=== PATIENT | male | born 1975 | race Caucasian/White ===

== ENCOUNTER → 2016-06-29 | Outpatient (REF) | payer MEDICARE ==
[2016-06-29 18:11] LABS: ALBUMIN 4.8 GM/DL (3.2-5.2); ALBUMIN/GLOBULIN RATIO 1.71 (1.00-1.93); ALKALINE PHOSPHATASE 80 U/L (45-117); ALT/SGPT 54 U/L (12-78); ANION GAP 9 MEQ/L (8-16); AST/SGOT 18 U/L (15-37); BILIRUBIN,TOTAL 0.6 MG/DL (0.2-1.0); BLOOD UREA NITROGEN 9 MG/DL (7-18); CALCIUM LEVEL 9.5 MG/DL (8.5-10.1); CARBON DIOXIDE LEVEL 26 MEQ/L (21-32); CHLORIDE LEVEL 109 MEQ/L (98-107); CHOLESTEROL LEVEL 141 MG/DL (<200); CREATININE FOR GFR 1.06 MG/DL (0.70-1.30); GLOMERULAR FILTRATION RATE > 60.0 (>60); GLUCOSE, FASTING 88 MG/DL (70-105); POTASSIUM SERUM 4.2 MEQ/L (3.5-5.1); SODIUM LEVEL 144 MEQ/L (136-145); TOTAL PROTEIN 7.6 GM/DL (6.4-8.2); TRIGLYCERIDES LEVEL 106 MG/DL (<150)
== END ==
LOC: M SFHCPLAZ 15:51
PROVIDERS: ATTEND Nurse Practitioner Adult Health
DX: I10 Essential (primary) hypertension (principal); E78.00 Pure hypercholesterolemia, unspecified; E03.9 Hypothyroidism, unspecified
CPT/HCPCS: 36415; 80053; 80061; 84443; G0463

== ENCOUNTER → 2017-01-04 | Outpatient (REF) | payer MEDICARE ==
[2017-01-04 18:48] LABS: MEAN CORPUSCULAR HEMOGLOBIN 30.2 pg (27.0-33.0); MEAN CORPUSCULAR VOLUME 86.1 fl (80.0-96.0); RED CELL DISTRIBUTION WIDTH 12.8 % (11.5-14.5); WHITE BLOOD COUNT 7.1 10^3/uL (4.0-10.0)
[2017-01-04 19:02] LABS: ALBUMIN 4.5 GM/DL (3.2-5.2); ALKALINE PHOSPHATASE 81 U/L (45-117); ALT/SGPT 61 U/L (12-78); ANION GAP 11 MEQ/L (8-16); AST/SGOT 20 U/L (15-37); BILIRUBIN,TOTAL 0.7 MG/DL (0.2-1.0); BLOOD UREA NITROGEN 15 MG/DL (7-18); CALCIUM LEVEL 9.3 MG/DL (8.5-10.1); CARBON DIOXIDE LEVEL 23 MEQ/L (21-32); CHLORIDE LEVEL 106 MEQ/L (98-107); CHOLESTEROL LEVEL 159 MG/DL (<200); CREATININE FOR GFR 0.92 MG/DL (0.70-1.30); GLOMERULAR FILTRATION RATE > 60.0 (>60); GLUCOSE, FASTING 74 MG/DL (70-105); POTASSIUM SERUM 3.6 MEQ/L (3.5-5.1); SODIUM LEVEL 140 MEQ/L (136-145); TOTAL PROTEIN 7.5 GM/DL (6.4-8.2); TRIGLYCERIDES LEVEL 114 MG/DL (<150)
== END ==
LOC: M SFHCPLAZ 15:51
PROVIDERS: ATTEND Nurse Practitioner Adult Health
DX: Z00.00 Encounter for general adult medical examination without abnormal findings (principal); E78.2 Mixed hyperlipidemia; E03.9 Hypothyroidism, unspecified; Z79.899 Other long term (current) drug therapy
CPT/HCPCS: 36415; 80053; 80061; 83036; 84443; 85027; G0463

== ENCOUNTER → 2017-01-04 | Outpatient (REF) | payer MEDICARE | LOC: M LAB REF 17:49 | PROVIDERS: ATTEND Psychiatry & Neurology Psychiatry | DX: Z51.81 Encounter for therapeutic drug level monitoring (principal); Z79.899 Other long term (current) drug therapy ==

== ENCOUNTER → 2018-01-09 | Outpatient (REF) | payer MEDICARE | LOC: M SFHCPLAZ 11:23 | DX: Z00.00 Encounter for general adult medical examination without abnormal findings (principal); E03.9 Hypothyroidism, unspecified; E78.2 Mixed hyperlipidemia ==

== ENCOUNTER → 2018-01-09 | Outpatient (CLI) | payer MEDICARE ==
[2018-01-09 14:00] LABS: ALBUMIN 4.8 GM/DL (3.2-5.2); ALBUMIN/GLOBULIN RATIO 1.66 (1.00-1.93); ALKALINE PHOSPHATASE 80 U/L (45-117); ALT/SGPT 61 U/L (12-78); ANION GAP 8 MEQ/L (8-16); AST/SGOT 27 U/L (7-37); BILIRUBIN,TOTAL 0.6 MG/DL (0.2-1.0); BLOOD UREA NITROGEN 20 MG/DL (7-18); CALCIUM LEVEL 9.3 MG/DL (8.5-10.1); CARBON DIOXIDE LEVEL 26 MEQ/L (21-32); CHLORIDE LEVEL 108 MEQ/L (98-107); CHOLESTEROL LEVEL 167 MG/DL (<200); CHOLESTEROL RISK RATIO 3.408 (<5); CREATININE FOR GFR 1.06 MG/DL (0.70-1.30); GLOMERULAR FILTRATION RATE > 60.0 (>60); GLUCOSE, FASTING 86 MG/DL (70-100); HDL CHOLESTEROL 49 MG/DL (>40); LDL CHOLESTEROL 107 MG/DL (<100); NON-HDL-C 118 MG/DL; POTASSIUM SERUM 4.4 MEQ/L (3.5-5.1); SODIUM LEVEL 142 MEQ/L (136-145); TOTAL PROTEIN 7.7 GM/DL (6.4-8.2); TRIGLYCERIDES LEVEL 56 MG/DL (<150)
== END ==
LOC: M ADAMS 08:00
DX: E78.2 Mixed hyperlipidemia (principal); E03.9 Hypothyroidism, unspecified
CPT/HCPCS: 84443

== ENCOUNTER → 2018-02-21 | Outpatient (REF) | payer MEDICARE ==
[2018-02-22 14:52] LABS: CREATININE FOR GFR 1.13 MG/DL (0.70-1.30); GLOMERULAR FILTRATION RATE > 60.0 (>60)
[2018-02-22 14:52] LABS: BLOOD UREA NITROGEN 13 MG/DL (7-18)
== END ==
LOC: M LABDRWAD 14:40
DX: M85.831 Other specified disorders of bone density and structure, right forearm (principal)
CPT/HCPCS: 82565

== ENCOUNTER → 2018-04-10 | Outpatient (REF) | payer MEDICARE ==
[2018-04-10 20:07] LABS: BLOOD UREA NITROGEN 13 MG/DL (7-18); GLOMERULAR FILTRATION RATE > 60.0 (>60)
== END ==
LOC: M LABDRWAD 19:25
PROVIDERS: ATTEND Physician Assistant Surgical
DX: Z01.812 Encounter for preprocedural laboratory examination (principal)

== ENCOUNTER → 2018-06-25 | Outpatient (CLI) | payer MEDICARE ==
--- NOTE | 2018-06-26 01:05 | ECGEPIP ---
Stationary ECG Study [facility] Test Date: 2018-06-25 Pat Name: FAWN BUITRAGO Department: Room: - Gender: M [employer]: [employer] : 1975 Requested By: LUCY Paredes Order Number: [id number] Reading MD: Hima Venegas Measurements Intervals [place] Rate: 76 P: 37 IL: 153 QRS: -1 QRSD: 95 T: 39 QT: 372 QTc: 419 Interpretive Statements SINUS RHYTHM INFERIOR MYOCARDIAL INFARCTION, PROBABLY OLD WITH POSTERIOR EXTENSION NO PRIOR TRACING IN THE SYSTEM Electronically Signed On 06-26-2018 1:04:53 EDT by Hima Venegas
== END ==
LOC: M EKG 14:16
PROVIDERS: ATTEND Orthopaedic Surgery
DX: Z01.810 Encounter for preprocedural cardiovascular examination (principal); S46.211D Strain of muscle, fascia and tendon of other parts of biceps, right arm, subsequent encounter

== ENCOUNTER → 2018-07-10 | Outpatient (REF) | payer MEDICARE ==
[2018-07-10 15:44] LABS: ALBUMIN 4.9 GM/DL (3.2-5.2); ALT/SGPT 49 U/L (12-78); BILIRUBIN,TOTAL 0.5 MG/DL (0.2-1.0); BLOOD UREA NITROGEN 13 MG/DL (7-18); CALCIUM LEVEL 9.6 MG/DL (8.5-10.1); CARBON DIOXIDE LEVEL 31 MEQ/L (21-32); CHLORIDE LEVEL 106 MEQ/L (98-107); CREATININE FOR GFR 1.09 MG/DL (0.70-1.30); GLOMERULAR FILTRATION RATE > 60.0 (>60); GLUCOSE, FASTING 86 MG/DL (70-100); MAGNESIUM LEVEL 2.4 MG/DL (1.8-2.4); POTASSIUM SERUM 4.2 MEQ/L (3.5-5.1); SODIUM LEVEL 142 MEQ/L (136-145); TOTAL PROTEIN 8.2 GM/DL (6.4-8.2)
[2018-07-10 15:50] LABS: HEMATOCRIT 46.6 % (42.0-52.0); HEMOGLOBIN 15.8 g/dl (13.5-17.5); MEAN CORPUSCULAR HEMOGLOBIN 29.9 pg (27.0-33.0); MEAN CORPUSCULAR HGB CONC 33.9 g/dl (32.0-36.5); MEAN CORPUSCULAR VOLUME 88.3 fl (80.0-96.0); PLATELET COUNT, AUTOMATED 307 10^3/uL (150-450); RED BLOOD COUNT 5.28 10^6/uL (4.30-6.10); WHITE BLOOD COUNT 6.7 10^3/uL (4.0-10.0)
== END ==
LOC: M SFHCPLAZ 13:54
PROVIDERS: ATTEND Internal Medicine
DX: Z01.818 Encounter for other preprocedural examination (principal); S46.211D Strain of muscle, fascia and tendon of other parts of biceps, right arm, subsequent encounter; I10 Essential (primary) hypertension; E03.9 Hypothyroidism, unspecified; K21.9 Gastro-esophageal reflux disease without esophagitis
CPT/HCPCS: 36415; 80053; 83735; 84443; 85027; G0463

== ENCOUNTER → 2020-02-05 | Outpatient (REF) | payer MEDICARE ==
[2020-02-05 17:26] LABS: HEMOGLOBIN A1c 5.2 %
[2020-02-05 17:34] LABS: ALT/SGPT 56 U/L (12-78); BILIRUBIN,TOTAL 0.5 MG/DL (0.2-1.0); BLOOD UREA NITROGEN 15 MG/DL (7-18); CALCIUM LEVEL 9.8 MG/DL (8.5-10.1); CARBON DIOXIDE LEVEL 29 MEQ/L (21-32); CHLORIDE LEVEL 108 MEQ/L (98-107); CHOLESTEROL LEVEL 179 MG/DL (<200); CHOLESTEROL RISK RATIO 3.977 (<5); CREATININE FOR GFR 1.21 MG/DL (0.70-1.30); GLOMERULAR FILTRATION RATE > 60.0 (>60); GLUCOSE, FASTING 87 MG/DL (70-100); HDL CHOLESTEROL 45 MG/DL (>40); LDL CHOLESTEROL 107 MG/DL (<100); NON-HDL-C 134 MG/DL; POTASSIUM SERUM 4.9 MEQ/L (3.5-5.1); SODIUM LEVEL 142 MEQ/L (136-145); TOTAL PROTEIN 8.2 GM/DL (6.4-8.2); TRIGLYCERIDES LEVEL 137 MG/DL (<150)
== END ==
LOC: M SFHCPLAZ 14:51
PROVIDERS: ATTEND Nurse Practitioner Adult Health
DX: Z01.818 Encounter for other preprocedural examination (principal); I10 Essential (primary) hypertension; E03.9 Hypothyroidism, unspecified; E78.2 Mixed hyperlipidemia; Z13.1 Encounter for screening for diabetes mellitus; Z79.899 Other long term (current) drug therapy; Z23 Encounter for immunization
CPT/HCPCS: 36415; 80053; 80061; 83036; 84443; 90682; G0008

== ENCOUNTER → 2020-08-10 | Outpatient (REF) | payer MEDICARE ==
[2020-08-10 18:56] LABS: ALBUMIN 4.8 GM/DL (3.2-5.2); ALT/SGPT 51 U/L (12-78); BILIRUBIN,TOTAL 0.5 MG/DL (0.2-1.0); BLOOD UREA NITROGEN 14 MG/DL (7-18); CALCIUM LEVEL 9.8 MG/DL (8.5-10.1); CARBON DIOXIDE LEVEL 28 MEQ/L (21-32); CHLORIDE LEVEL 108 MEQ/L (98-107); CHOLESTEROL LEVEL 191 MG/DL (<200); CHOLESTEROL RISK RATIO 3.897 (<5); CREATININE FOR GFR 1.04 MG/DL (0.70-1.30); GLOMERULAR FILTRATION RATE > 60.0 (>60); GLUCOSE, FASTING 79 MG/DL (70-100); HDL CHOLESTEROL 49 MG/DL (>40); LDL CHOLESTEROL 120 MG/DL (<100); NON-HDL-C 142 MG/DL; POTASSIUM SERUM 4.5 MEQ/L (3.5-5.1); SODIUM LEVEL 142 MEQ/L (136-145); TOTAL PROTEIN 7.7 GM/DL (6.4-8.2); TRIGLYCERIDES LEVEL 108 MG/DL (<150)
== END ==
LOC: M SFHCPLAZ 14:58
PROVIDERS: ATTEND Nurse Practitioner Adult Health
DX: Z01.818 Encounter for other preprocedural examination (principal); E03.9 Hypothyroidism, unspecified; I10 Essential (primary) hypertension; E78.2 Mixed hyperlipidemia
CPT/HCPCS: 36415; 80053; 80061; 84443; G0463

== ENCOUNTER 2020-09-25 11:12 | Day surgery (SDC) | payer MEDICARE ==
[~2020-09-25] VITALS: Ht 177.8 cm; Wt 112.0 kg
[2020-09-25] MEDS ORDERED: LEVO125T4 PO (11:32)
[2020-09-25] MEDS ORDERED: FLUO20CA22 PO (11:32)
[2020-09-25] MEDS ORDERED: SIMV20TA22 PO (11:32)
[2020-09-25] MEDS ORDERED: LISI10TA22 PO (11:32)
[2020-09-25] MEDS ORDERED: OLAN5TAB PO (11:32)
[2020-09-25 11:47] LABS: BASO # 0.1 10^3/uL (0.0-0.2); BASO % 0.4 % (0.0-1.0); EOS # 0.1 10^3/uL (0.0-0.5); HEMATOCRIT 44.1 % (42.0-52.0); LYMPH # 1.4 10^3/uL (1.5-5.0); LYMPH % 10.7 % (24.0-44.0); MEAN CORPUSCULAR HEMOGLOBIN 30.4 pg (27.0-33.0); MEAN CORPUSCULAR VOLUME 89.3 fl (80.0-96.0); MONO # 0.8 10^3/uL (0.0-0.8); NEUTROPHILS # 10.7 10^3/uL (1.5-8.5); NEUTROPHILS % 81.5 % (36.0-66.0); PLATELET COUNT, AUTOMATED 262 10^3/uL (150-450); RED BLOOD COUNT 4.94 10^6/uL (4.30-6.10); WHITE BLOOD COUNT 13.1 10^3/uL (4.0-10.0)
[2020-09-25] MEDS ORDERED: NS 1,000 ML IV ONE (12:10)
[2020-09-25] MEDS ORDERED: MORPHINE 4 MG/ML 1ML VIAL/SYRINGE (J2270) IV ONE (12:10)
[2020-09-25 12:11] LABS: ALBUMIN 4.3 GM/DL (3.2-5.2); BILIRUBIN,DIRECT 0.2 MG/DL (0.0-0.2); BILIRUBIN,TOTAL 0.6 MG/DL (0.2-1.0); TOTAL PROTEIN 7.5 GM/DL (6.4-8.2)
--- NOTE | 2020-09-25 13:11 | REP ---
INDICATION: ruq pain. FINDINGS: Multiple ultrasonographic images of the liver show diffuse increased echoes throughout the hepatic parenchyma without evidence of a mass or ductal dilatation. The common bile duct measures approximately 5 mm in its greatest transverse dimension. Multiple ultrasonographic images of the gallbladder show no focal or diffuse gallbladder wall thickening. There are no echogenic foci within the gallbladder lumen, which casts acoustic shadows. There is no pericholecystic edema. Images of the pancreatic region show no gross abnormality. The imaged portion of the right kidney is unremarkable. IMPRESSION: Fatty infiltration of the liver. Accredited by the [employer] in General Ultrasound. <Electronically signed by Shailesh Valero > 09/25/20 [id number]
[2020-09-25] MEDS ORDERED: ISOVUE-370 76% 100ML VIAL As Ordered ONE (13:51)
--- NOTE | 2020-09-25 14:13 | REP ---
INDICATION: right abd pain, r/o appy. COMPARISON: 10/27/2010 the only prior TECHNIQUE: Standard helical technique after the intravenous administration of 100 cc Isovue 370. FINDINGS: The lung bases are clear and unchanged. The liver, gallbladder, spleen, pancreas, adrenal glands, and kidneys are essentially unchanged. There are small bilateral renal cysts. The abdominal aorta and para-regions are within normal limits. There is no free fluid or free air. There is no mass or adenopathy. The appendix is abnormally dilatated and there is abnormal periappendiceal fatty infiltration with fatty infiltration of the mesoappendix. Bone window technique throughout the examination shows the osseous structures to be within normal limits. There is bilateral L5 spondylolysis with a grade 1/2 L5 upon S1 spondylolisthesis. IMPRESSION: 1. Acute appendicitis 2. Other findings as described above. <Electronically signed by Shailesh Valero > 09/25/20 [id number]
[2020-09-25] MEDS ORDERED: PIPERACILLIN/TAZOBACTAM SOD 3.375 GM in D5W MINI-BAG PLUS 50 ML IV ONE (14:20)
[2020-09-25] MEDS ORDERED: propofoL 200 MG/20 ML VIAL As Ordered ONE (16:21)
[2020-09-25] MEDS ORDERED: ONDANSETRON 4MG/2ML VIAL As Ordered ONE (16:21)
[2020-09-25] MEDS ORDERED: dexameTHASONE 4 MG/ML 1ML VIAL (J1100 PER 1MG) As Ordered ONE (16:21)
[2020-09-25] MEDS ORDERED: fentaNYL 250 MCG/5 ML INJECTION (J3010) As Ordered ONE (16:21)
[2020-09-25] MEDS ORDERED: LIDOCAINE 2% 100MG/5ML SDV (FOR ANES.) As Ordered ONE (16:21)
[2020-09-25] MEDS ORDERED: ROCURONIUM BROMIDE 50 MG/5 ML VIAL As Ordered ONE (16:21)
[2020-09-25] MEDS ORDERED: MIDAZOLAM INJ 2MG/2ML VIAL (J2250 PER 1MG) As Ordered ONE (16:21)
[2020-09-25 16:40] VITALS: BP 136/81
[2020-09-25] MEDS ORDERED: NS 1,000 ML IV SCH (16:45)
[2020-09-25] MEDS ORDERED: SUGAMMADEX SODIUM 500 MG/5 ML VIAL (BRIDION) As Ordered ONE (16:46)
[2020-09-25] MEDS ORDERED: BUPIVACAINE/EPIN 0.25% 30 ML VIAL As Ordered ONE (17:02)
[2020-09-25] MEDS ORDERED: ACETAMINOPHEN 1000MG 100ML IV BTL (OFIRMEV) (J0131 PER 10MG) As Ordered ONE (17:57)
[2020-09-25] MEDS ORDERED: IPRATROPIUM 0.5MG/ALBUTEROL 2.5MG INH SOL UD 3ML (DUONEB) NEB PRN (18:35)
[2020-09-25] MEDS ORDERED: MORPHINE 2 MG/ML 1ML VIAL (J2270) IV PRN ×2 (18:35)
[2020-09-25] MEDS ORDERED: NORCO, ANEXSIA 5/325MG TABLET (HYDROcodone/ACETAMINOPHEN) PO PRN ×2 (18:35)
[2020-09-25] MEDS: fentaNYL 100 MCG/2 ML INJECTION (J3010) IV PRN ×4 (18:45→19:00)
[2020-09-25] MEDS ORDERED: fentaNYL 100 MCG/2 ML INJECTION (J3010) As Ordered ONE (18:45)
[2020-09-25] MEDS ORDERED: HYDROmorphone HCL 2 MG/ML 1ML VIAL (J1170) As Ordered ONE (18:59)
[2020-09-25] MEDS: HYDROMORPHONE HCL 0.5 MG/ 0.5 ML SYRINGE (J1170 PER 1) IV PRN ×2 (19:05→19:10)
[2020-09-25] MEDS ORDERED: ONDANSETRON 4MG/2ML VIAL IV PRN (19:05)
[2020-09-25] MEDS ORDERED: oxyCODONE 5MG TAB PO PRN (19:05)
[2020-09-25] MEDS ORDERED: LR 1,000 ML IV SCH (19:05)
[2020-09-25] MEDS: NS 1,000 ML IV SCH ×2 (19:12→20:13)
[2020-09-25 20:00] VITALS: BP 148/82
[2020-09-25] MEDS: IPRATROPIUM 0.5MG/ALBUTEROL 2.5MG INH SOL UD 3ML (DUONEB) NEB SCH (20:00)
[2020-09-25] MEDS: PIPERACILLIN/TAZOBACTAM SOD 3.375 GM in D5W MINI-BAG PLUS 50 ML IV SCH (20:11)
[2020-09-25] MEDS: KETOROLAC 30 MG/ML 1ML VIAL IV SCH (20:12)
[2020-09-25] MEDS: FLUoxetine 20 MG CAP PO SCH (20:12)
[2020-09-25 20:30] VITALS: BP 136/85
[2020-09-25 21:00] VITALS: BP 135/82
[2020-09-25] MEDS ORDERED: OLANZapine 5 MG TAB PO SCH (21:00)
[2020-09-25] MEDS ORDERED: SIMVASTATIN 20 MG TAB PO SCH (21:00)
[2020-09-25 22:00] VITALS: BP 121/85
[2020-09-25 23:00] VITALS: BP 119/83
[2020-09-26] VITALS: BP 120/83
[2020-09-26 01:00] VITALS: BP 120/84
[2020-09-26] MEDS: IPRATROPIUM 0.5MG/ALBUTEROL 2.5MG INH SOL UD 3ML (DUONEB) NEB SCH ×3 (02:00→13:20)
[2020-09-26] MEDS: PIPERACILLIN/TAZOBACTAM SOD 3.375 GM in D5W MINI-BAG PLUS 50 ML IV SCH ×2 (02:32→09:05)
[2020-09-26] MEDS: KETOROLAC 30 MG/ML 1ML VIAL IV SCH ×2 (02:32→09:04)
[2020-09-26 06:00] VITALS: BP 119/85
[2020-09-26] MEDS ORDERED: LEVOTHYROXINE 125MCG TABLET (0.125MG) PO SCH (06:00)
[2020-09-26 07:57] VITALS: BP 121/88
[2020-09-26 09:05] VITALS: BP 121/88
[2020-09-26] MEDS: FLUoxetine 20 MG CAP PO SCH (09:05)
== END 2020-09-26 15:06 | disposition home or self-care (01) ==
LOC: M ED 11:12 → M SDC 11:13 → ENRESERV 15:22 → M MSPAV 16:38 → M SDC 09-26 15:06
PROVIDERS: ATTEND Surgery
DX: K35.80 Unspecified acute appendicitis (principal); R10.9 Unspecified abdominal pain; I10 Essential (primary) hypertension; E78.5 Hyperlipidemia, unspecified; E07.9 Disorder of thyroid, unspecified; F32.9 Major depressive disorder, single episode, unspecified
CPT/HCPCS: 44970; 74177; 76705; 80047; 80076; 81001; 83690; 85025; 88304; 96365; 96366; 96375; 96376; 99284; J0131; J1100; J1170; J1885; J2250; J2270; J2405; J2543; J3010; Q9967; U0002

== ENCOUNTER → 2020-12-16 | Outpatient (REF) | payer MEDICARE ==
[~2020-12-16] MED LIST: FLUO20CA22 PO; LEVO125T4 PO; LISI10TA22 PO; OLAN1TAB16 PO; SIMV20TA22 PO
[2020-12-16 17:23] LABS: HEMOGLOBIN A1c 5.3 %
[2020-12-16 17:28] LABS: CHOLESTEROL RISK RATIO 3.6 (<5)
== END ==
LOC: M LABDRWAD 16:35
PROVIDERS: ATTEND Psychiatry & Neurology Psychiatry
DX: Z79.899 Other long term (current) drug therapy (principal)

== ENCOUNTER → 2021-02-16 | Outpatient (REF) | payer MEDICARE ==
[2021-02-16 13:48] LABS: THYROID STIMULATING HORMONE 2.97 uIU/ML (0.358-3.740); URIC ACID 8.6 MG/DL (3.5-7.2)
== END ==
LOC: M SFHCPLAZ 10:50 → M SFHCADAM 10:52
PROVIDERS: ATTEND Nurse Practitioner Adult Health
DX: E03.9 Hypothyroidism, unspecified (principal); M79.672 Pain in left foot

== ENCOUNTER → 2021-08-15 | Outpatient (CLI) | payer MEDICARE ==
[2021-08-15 17:36] LABS: ALBUMIN 4.6 GM/DL (3.2-5.2); ALT/SGPT 67 U/L (12-78); BILIRUBIN,TOTAL 0.6 MG/DL (0.2-1.0); BLOOD UREA NITROGEN 23 MG/DL (7-18); CALCIUM LEVEL 10.2 MG/DL (8.5-10.1); CARBON DIOXIDE LEVEL 26 MEQ/L (21-32); CHLORIDE LEVEL 110 MEQ/L (98-107); CHOLESTEROL LEVEL 149 MG/DL (<200); CHOLESTEROL RISK RATIO 3.547 (<5); CREATININE FOR GFR 1.12 MG/DL (0.70-1.30); GLOMERULAR FILTRATION RATE > 60.0 (>60); GLUCOSE, FASTING 82 MG/DL (70-100); HDL CHOLESTEROL 42 MG/DL (>40); LDL CHOLESTEROL 79 MG/DL (<100); NON-HDL-C 107 MG/DL; POTASSIUM SERUM 4.1 MEQ/L (3.5-5.1); RHEUMATOID FACTOR QUANT < 10.0 IU/ML (<15.0); SODIUM LEVEL 142 MEQ/L (136-145); TOTAL PROTEIN 7.4 GM/DL (6.4-8.2); TRIGLYCERIDES LEVEL 139 MG/DL (<150)
== END ==
LOC: M PLAIMG 14:28
PROVIDERS: ATTEND Nurse Practitioner Adult Health
DX: M25.572 Pain in left ankle and joints of left foot (principal); E78.00 Pure hypercholesterolemia, unspecified

== ENCOUNTER → 2022-05-05 | Outpatient (CLI) | payer MEDICARE ==
[2022-05-13 06:08] LABS: D002-IGE D FARINAE MITE <0.10 kU/L (Class 0); E001-IGE CAT EPITHELIUM/DANDER <0.10 kU/L (Class 0); E005-IGE DOG DANDER/HAIR/EPITH <0.10 kU/L (Class 0); G002-IGE BERMUDA GRASS <0.10 kU/L (Class 0); G003-IGE ORCHARD GRASS <0.10 kU/L (Class 0); G006-IGE TIMOTHY GRASS <0.10 kU/L (Class 0); IGE HICKORY, WHITE <0.10 kU/L (Class 0); M003-IGE ASPERGILLUS FUMIGATUS <0.10 kU/L (Class 0); M003-IGE D pteronyssinus <0.10 kU/L (Class 0); M006-IGE ALTERNARIA alternata <0.10 kU/L (Class 0); M007-IGE BOTRYTIS cinerea <0.10 kU/L (Class 0); M009-IGE FUSARIUM proliferatum <0.10 kU/L (Class 0); T001-IGE MAPLE/BOX ELDER <0.10 kU/L (Class 0); T003-IGE COMMON SILVER BIRCH <0.10 kU/L (Class 0); T005-IGE BEECH (AMERICAN) <0.10 kU/L (Class 0); T007-IGE OAK, WHITE <0.10 kU/L (Class 0); T008-IGE ELM, AMERICAN WHITE <0.10 kU/L (Class 0); T014-IGE COTTONWOOD <0.10 kU/L (Class 0); T015-IGE ASH, WHITE <0.10 kU/L (Class 0); T016-IGE PINE, WHITE <0.10 kU/L (Class 0); W001-IGE RAGWEED, SHORT <0.10 kU/L (Class 0); W003-IGE RAGWEED, GIANT <0.10 kU/L (Class 0); W006-IGE MUGWORT <0.10 kU/L (Class 0); W009-IGE PLANTAIN,ENGLISH <0.10 kU/L (Class 0); W010-IGE LAMB'S QUARTER <0.10 kU/L (Class 0); W012-IGE GOLDENROD <0.10 kU/L (Class 0)
== END ==
LOC: M LABDRWAD 13:15
PROVIDERS: ATTEND Allergy & Immunology Allergy
DX: J31.0 Chronic rhinitis (principal); Z79.899 Other long term (current) drug therapy

== ENCOUNTER → 2022-05-18 | Outpatient (REF) | payer MEDICARE, OTHER ==
[2022-05-18 13:54] LABS: BASO # 0.1 10^3/uL (0.0-0.2); BASO % 0.8 % (0.0-1.0); EOS # 0.2 10^3/uL (0.0-0.5); EOS % 3.4 % (0.0-3.0); HEMOGLOBIN 14.9 g/dl (13.5-17.5); LYMPH % 32.3 % (24.0-44.0); MEAN CORPUSCULAR HEMOGLOBIN 30.8 pg (27.0-33.0); MEAN CORPUSCULAR HGB CONC 33.9 g/dl (32.0-36.5); MEAN CORPUSCULAR VOLUME 91.1 fl (80.0-96.0); MONO # 0.5 10^3/uL (0.0-0.8); MONO % 7.8 % (2.0-8.0); NEUTROPHILS # 3.4 10^3/uL (1.5-8.5); NEUTROPHILS % 55.5 % (36.0-66.0); PLATELET COUNT, AUTOMATED 265 10^3/uL (150-450); RED BLOOD COUNT 4.83 10^6/uL (4.30-6.10); WHITE BLOOD COUNT 6.2 10^3/uL (4.0-10.0)
[2022-05-18 14:26] LABS: ALBUMIN 4.6 G/DL (3.2-5.2); ALKALINE PHOSPHATASE 92 U/L (46-116); ALT/SGPT 81 U/L (7.0-40); AST/SGOT 36 U/L (<34); BILIRUBIN,TOTAL 0.8 MG/DL (0.3-1.2); BLOOD UREA NITROGEN 20 MG/DL (9-23); CALCIUM LEVEL 9.8 MG/DL (8.5-10.1); CARBON DIOXIDE LEVEL 28 MMOL/L (20-31); CHLORIDE LEVEL 104 MMOL/L (98-107); CHOLESTEROL LEVEL 159 MG/DL (<200); CHOLESTEROL RISK RATIO 3.39 (<5); CREATININE FOR GFR 0.96 MG/DL (0.70-1.30); GLOMERULAR FILTRATION RATE > 60.0 (>60); GLUCOSE, FASTING 93 MG/DL (60-100); HDL CHOLESTEROL 46.9 MG/DL (>40); LDL CHOLESTEROL 84.9 MG/DL (<100); NON-HDL-C 112 MG/DL; SODIUM LEVEL 140 MMOL/L (136-145); TOTAL PROTEIN 7.3 G/DL (5.7-8.2); TRIGLYCERIDES LEVEL 136 MG/DL (<150)
== END ==
LOC: M LABDRWAD 12:49
DX: Z51.81 Encounter for therapeutic drug level monitoring (principal); E78.00 Pure hypercholesterolemia, unspecified

== ENCOUNTER → 2022-05-26 | Outpatient (CLI) | payer OTHER | LOC: M EKG 10:40 | DX: Z51.81 Encounter for therapeutic drug level monitoring (principal) ==

== ENCOUNTER → 2022-07-26 | Outpatient (CLI) | payer MEDICARE | LOC: M RAD 07:08 | PROVIDERS: ATTEND Nurse Practitioner Adult Health | DX: R10.13 Epigastric pain (principal) ==

== ENCOUNTER → 2022-08-30 | Outpatient (REF) | payer MEDICARE ==
[2022-08-30 15:10] LABS: ALBUMIN 4.5 G/DL (3.2-5.2); ALKALINE PHOSPHATASE 96 U/L (46-116); ALT/SGPT 65 U/L (7.0-40); AST/SGOT 33 U/L (<34); BILIRUBIN,TOTAL 0.4 MG/DL (0.3-1.2); BLOOD UREA NITROGEN 22 MG/DL (9-23); CALCIUM LEVEL 9.5 MG/DL (8.5-10.1); CARBON DIOXIDE LEVEL 27 MMOL/L (20-31); CHLORIDE LEVEL 109 MMOL/L (98-107); CHOLESTEROL LEVEL 132 MG/DL (<200); CREATININE FOR GFR 1.03 MG/DL (0.70-1.30); GLOMERULAR FILTRATION RATE > 60.0 (>60); GLUCOSE, FASTING 90 MG/DL (60-100); HDL CHOLESTEROL 48.8 MG/DL (>40); LDL CHOLESTEROL 66.8 MG/DL (<100); NON-HDL-C 83.2 MG/DL; POTASSIUM SERUM 5.1 MMOL/L (3.5-5.1); SODIUM LEVEL 141 MMOL/L (136-145); TOTAL PROTEIN 6.9 G/DL (5.7-8.2); TRIGLYCERIDES LEVEL 82 MG/DL (<150)
[2022-08-30 15:11] LABS: THYROID STIMULATING HORMONE 5.059 uIU/ML (0.55-4.78)
[2022-08-30 15:20] LABS: URIC ACID 4.3 MG/DL (3.7-9.2)
== END ==
LOC: M SFHCPLAZ 08:15
PROVIDERS: ATTEND Nurse Practitioner Adult Health
DX: I10 Essential (primary) hypertension (principal); E78.2 Mixed hyperlipidemia; E03.9 Hypothyroidism, unspecified; M1A.0720 Idiopathic chronic gout, left ankle and foot, without tophus (tophi)

== ENCOUNTER → 2022-10-30 | Outpatient (CLI) | payer MEDICARE ==
[2022-10-30 11:13] LABS: HEMATOCRIT 44.3 % (42.0-52.0); HEMOGLOBIN 14.9 g/dl (13.5-17.5); MEAN CORPUSCULAR HEMOGLOBIN 30.7 pg (27.0-33.0); MEAN CORPUSCULAR HGB CONC 33.6 g/dl (32.0-36.5); MEAN CORPUSCULAR VOLUME 91.2 fl (80.0-96.0); PLATELET COUNT, AUTOMATED 257 10^3/uL (150-450); RED BLOOD COUNT 4.86 10^6/uL (4.30-6.10); WHITE BLOOD COUNT 5.4 10^3/uL (4.0-10.0)
[2022-10-30 11:16] LABS: ALBUMIN 4.4 G/DL (3.2-5.2); ALKALINE PHOSPHATASE 77 U/L (46-116); ALT/SGPT 53 U/L (7.0-40); AST/SGOT 20 U/L (<34); BILIRUBIN,TOTAL 0.4 MG/DL (0.3-1.2); BLOOD UREA NITROGEN 20 MG/DL (9-23); CALCIUM LEVEL 9.2 MG/DL (8.5-10.1); CARBON DIOXIDE LEVEL 22 MMOL/L (20-31); CHLORIDE LEVEL 112 MMOL/L (98-107); GLOMERULAR FILTRATION RATE > 60.0 (>60); GLUCOSE, FASTING 99 MG/DL (60-100); POTASSIUM SERUM 4.4 MMOL/L (3.5-5.1); SODIUM LEVEL 144 MMOL/L (136-145); TOTAL PROTEIN 6.9 G/DL (5.7-8.2)
[2022-10-30 11:17] LABS: THYROID STIMULATING HORMONE 6.421 uIU/ML (0.55-4.78); TOTAL 25(OH) VITAMIN D 26.7 NG/ML (20.0-100.0)
[2022-10-30 11:18] LABS: RHEUMATOID FACTOR QUANT < 3.5 IU/ML (<14)
[2022-10-30 11:19] LABS: VITAMIN B12 LEVEL 388 PG/ML (211-911)
[2022-11-02 15:09] LABS: ANA (HEP2) Negative (.); ANCA-ATYPICAL <1:20 titer (Neg:<1:20); CYCLIC CITRULLINATED PEPTIDE 4 units (0-19); CYTOPLASMIC NEUTROP AB ANCA-C <1:20 titer (Neg:<1:20); IgG P18 AB Absent (.); IgG P23 AB Absent (.); IgG P28 AB Absent (.); IgG P30 AB Absent (.); IgG P39 AB Absent (.); IgG P41 AB Absent (.); IgG P45 AB Absent (.); IgG P66 AB Absent (.); IgG P93 AB Absent (.); IgM P23 AB Absent (.); IgM P39 AB Absent (.); IgM P41 AB Absent (.); LYME IgG WB INTERPRETATION Negative (.); LYME IgM WB INTERPRETATION Negative (.); PERINUCLEAR AB ANCA-P <1:20 titer (Neg:<1:20)
== END ==
LOC: M PLALAB 08:03
PROVIDERS: ATTEND Nurse Practitioner Adult Health
DX: R52 Pain, unspecified (principal); E03.9 Hypothyroidism, unspecified; Z79.899 Other long term (current) drug therapy

== ENCOUNTER → 2022-11-13 | Outpatient (CLI) | payer MEDICARE | LOC: M WHC 11:57 | PROVIDERS: ATTEND Nurse Practitioner Adult Health | DX: R13.10 Dysphagia, unspecified (principal) ==

== ENCOUNTER → 2023-02-05 | Outpatient (CLI) | payer MEDICARE ==
[~2023-02-05] MED LIST changes: +ALLO300T2; +ARIP10TA32; +CLON0.5T2; +DULO1CAP4; +HYDR-4571 PO; +MELO15TA28; +MIRT-10; +TADA10TA; +VALS1TAB66
== END ==
LOC: M SOG 07:52
PROVIDERS: ATTEND Physician Assistant
DX: S52.514A Nondisplaced fracture of right radial styloid process, initial encounter for closed fracture (principal); W18.30XA Fall on same level, unspecified, initial encounter; Y92.009 Unspecified place in unspecified non-institutional (private) residence as the place of occurrence of the external cause

== ENCOUNTER → 2023-02-20 | Outpatient (CLI) | payer MEDICARE | LOC: M SOG 07:54 | PROVIDERS: ATTEND Physician Assistant | DX: S52.514D Nondisplaced fracture of right radial styloid process, subsequent encounter for closed fracture with routine healing (principal); W18.30XD Fall on same level, unspecified, subsequent encounter ==

== ENCOUNTER → 2023-03-22 | Outpatient (CLI) | payer MEDICARE | LOC: M SOG 09:17 | PROVIDERS: ATTEND Physician Assistant | DX: S52.514D Nondisplaced fracture of right radial styloid process, subsequent encounter for closed fracture with routine healing (principal); Y93.9 Activity, unspecified; Y92.9 Unspecified place or not applicable ==

== ENCOUNTER 2023-05-26 12:23 | Emergency (ER) | payer MEDICARE ==
[~2023-05-26] VITALS: Ht 177.8 cm; Wt 119.6 kg
[2023-05-26] MEDS ORDERED: RIZA10TA58 (15:22)
[2023-05-26] MEDS ORDERED: DULO1CAP6 (15:22)
[2023-05-26] MEDS ORDERED: ZONI100C67 (15:22)
[2023-05-26] MEDS ORDERED: AMPH1CAP15 (15:22)
[2023-05-26] MEDS ORDERED: OMEP20TA2 (15:22)
[2023-05-26 17:27] LABS: C REACTIVE PROTEIN QUANTITATIV < 0.40 MG/DL (<1.0)
[2023-05-26 17:29] LABS: ALBUMIN 4.2 G/DL (3.2-5.2); ALKALINE PHOSPHATASE 105 U/L (46-116); ALT/SGPT 34 U/L (7.0-40); AST/SGOT 20 U/L (<34); BILIRUBIN,DIRECT < 0.1 MG/DL (<0.4); BILIRUBIN,TOTAL 0.2 MG/DL (0.3-1.2); BLOOD UREA NITROGEN 14 MG/DL (9-23); CARBON DIOXIDE LEVEL 24 MMOL/L (20-31); CHLORIDE LEVEL 111 MMOL/L (98-107); CREATININE FOR GFR 0.82 MG/DL (0.70-1.30); GLOMERULAR FILTRATION RATE > 60.0 (>60); GLUCOSE, FASTING 122 MG/DL (60-100); POTASSIUM SERUM 3.9 MMOL/L (3.5-5.1); SODIUM LEVEL 143 MMOL/L (136-145); TOTAL PROTEIN 6.7 G/DL (5.7-8.2)
[2023-05-26 18:00] LABS: ERYTHROCYTE SEDIMENTATION RATE 2 mm/hr (0-15)
[2023-05-26 18:42] LABS: BASO # 0.1 10^3/uL (0.0-0.2); BASO % 0.8 % (0.0-1.0); EOS # 0.3 10^3/uL (0.0-0.5); EOS % 4.9 % (0.0-3.0); HEMATOCRIT 43.4 % (42.0-52.0); HEMOGLOBIN 15.1 g/dl (13.5-17.5); LYMPH # 1.9 10^3/uL (1.5-5.0); LYMPH % 30.8 % (24.0-44.0); MEAN CORPUSCULAR HEMOGLOBIN 31.1 pg (27.0-33.0); MEAN CORPUSCULAR HGB CONC 34.8 g/dl (32.0-36.5); MEAN CORPUSCULAR VOLUME 89.5 fl (80.0-96.0); MONO # 0.4 10^3/uL (0.0-0.8); MONO % 6.9 % (2.0-8.0); NEUTROPHILS # 3.4 10^3/uL (1.5-8.5); NEUTROPHILS % 56.3 % (36.0-66.0); PLATELET COUNT, AUTOMATED 295 10^3/uL (150-450); RED BLOOD COUNT 4.85 10^6/uL (4.30-6.10); WHITE BLOOD COUNT 6.1 10^3/uL (4.0-10.0)
[2023-05-26 19:20] LABS: INR 0.95; PARTIAL THROMBOPLASTIN TIME 27.9 SECONDS (24.8-34.2); PROTHROMBIN TIME 12.4 SECONDS (12.5-14.5)
[2023-05-26] MEDS ORDERED: ISOVUE-370 76% 100ML VIAL As Ordered ONE (19:48)
[2023-05-26] MEDS ORDERED: COMP1EAC MC (21:37)
[2023-05-26 21:44] VITALS: BP 147/90; TEMP 97.8; O2SAT 98
== END 2023-05-26 21:51 | disposition home or self-care (01) ==
LOC: M ED 12:23
DX: R22.42 Localized swelling, mass and lump, left lower limb (principal); I10 Essential (primary) hypertension; E78.5 Hyperlipidemia, unspecified; G43.909 Migraine, unspecified, not intractable, without status migrainosus; K21.9 Gastro-esophageal reflux disease without esophagitis; F32.A Depression, unspecified; F10.10 Alcohol abuse, uncomplicated; Z79.83 Long term (current) use of bisphosphonates; Z79.899 Other long term (current) drug therapy
CPT/HCPCS: 36415; 73706; 80048; 80076; 83605; 85025; 85610; 85652; 85730; 86140; 93971; 99284; Q9967

== ENCOUNTER → 2023-08-07 | Outpatient (CLI) | payer OTHER, MEDICARE ==
[~2023-08-07] MED LIST changes: +AMPH1CAP15; +COMP1EAC MC; +DULO1CAP6; +FLUO-365 PO; -FLUO20CA22 PO; +MEDR4PAK PO; +OMEP20TA2; +RIZA10TA58; +TRAM50TA2 PO; +VALI5TAB PO; +ZONI100C67
[2023-08-07 17:46] LABS: URIC ACID 4.5 MG/DL (3.7-9.2)
[2023-08-07 17:50] LABS: ALBUMIN 4.1 G/DL (3.2-5.2); ALKALINE PHOSPHATASE 100 U/L (46-116); ALT/SGPT 41 U/L (7.0-40); AST/SGOT 24 U/L (<34); BILIRUBIN,TOTAL 0.5 MG/DL (0.3-1.2); BLOOD UREA NITROGEN 18 MG/DL (9-23); CALCIUM LEVEL 9.4 MG/DL (8.5-10.1); CARBON DIOXIDE LEVEL 27 MMOL/L (20-31); CHLORIDE LEVEL 110 MMOL/L (98-107); CHOLESTEROL LEVEL 138 MG/DL (<200); CREATININE FOR GFR 1.02 MG/DL (0.70-1.30); GLOMERULAR FILTRATION RATE > 60.0 (>60); GLUCOSE, FASTING 76 MG/DL (60-100); HDL CHOLESTEROL 43.1 MG/DL (>40); LDL CHOLESTEROL 77.9 MG/DL (<100); NON-HDL-C 94.9 MG/DL; POTASSIUM SERUM 4.4 MMOL/L (3.5-5.1); SODIUM LEVEL 145 MMOL/L (136-145); TOTAL PROTEIN 6.9 G/DL (5.7-8.2); TRIGLYCERIDES LEVEL 85 MG/DL (<150)
[2023-08-07 17:51] LABS: FREE T4 0.97 NG/DL (0.89-1.76); THYROID STIMULATING HORMONE 3.574 uIU/ML (0.55-4.78)
[2023-08-07 17:52] LABS: TOTAL 25(OH) VITAMIN D 44.1 NG/ML (20.0-100.0)
== END ==
LOC: M PLALAB 16:08
PROVIDERS: ATTEND Nurse Practitioner Adult Health
DX: M79.672 Pain in left foot (principal); M25.521 Pain in right elbow; E03.9 Hypothyroidism, unspecified; E78.2 Mixed hyperlipidemia; Z87.39 Personal history of other diseases of the musculoskeletal system and connective tissue; E56.9 Vitamin deficiency, unspecified

== ENCOUNTER → 2023-08-27 | Outpatient (CLI) | payer OTHER, MEDICARE ==
[~2023-08-27] MED LIST changes: -FLUO-365 PO; +FLUO20CA22 PO; -MEDR4PAK PO; -TRAM50TA2 PO; -VALI5TAB PO
== END ==
LOC: M WHC 14:32
PROVIDERS: ATTEND Nurse Practitioner Adult Health
DX: T07.XXXA Unspecified multiple injuries, initial encounter (principal); W18.30XA Fall on same level, unspecified, initial encounter; Y92.009 Unspecified place in unspecified non-institutional (private) residence as the place of occurrence of the external cause

== ENCOUNTER 2023-09-02 21:06 | Emergency (ER) | payer OTHER, MEDICARE ==
[~2023-09-02] VITALS: Ht 177.8 cm; Wt 115.8 kg
[2023-09-02 21:06] VITALS: BP 156/84; TEMP 98.9; O2SAT 97
[2023-09-02] MEDS: KETOROLAC 60MG 2ML VIAL IM ONE (22:59)
[2023-09-02] MEDS: methocarbamoL 500 MG TAB PO ONE (22:59)
[2023-09-02] MEDS: methylPREDNISolone 125MG 2ML VIAL IM ONE (22:59)
[2023-09-03] MEDS: traMADol 50 MG TAB PO ONE (00:31)
[2023-09-03] MEDS: diazePAM 10MG/2ML SYRINGE IM ONE (01:41)
[2023-09-03] MEDS ORDERED: VALI5TAB PO (02:51)
[2023-09-03] MEDS ORDERED: TRAM50TA2 PO (02:51)
[2023-09-03] MEDS ORDERED: MEDR4PAK PO (02:51)
== END 2023-09-03 03:15 | disposition home or self-care (01) ==
LOC: M ED 21:06
DX: M54.30 Sciatica, unspecified side (principal); I10 Essential (primary) hypertension; K21.9 Gastro-esophageal reflux disease without esophagitis; G43.909 Migraine, unspecified, not intractable, without status migrainosus; Z79.899 Other long term (current) drug therapy
CPT/HCPCS: 72131; 73502; 96372; 99282; J1885; J2919; J3360

== ENCOUNTER → 2023-09-12 | Outpatient (REF) | payer OTHER, MEDICARE ==
[~2023-09-12] MED LIST changes: +FLUO-365 PO; -FLUO20CA22 PO; +MEDR4PAK PO; +TRAM50TA2 PO; +VALI5TAB PO
[2023-09-12 18:49] LABS: URIC ACID 5.2 MG/DL (3.7-9.2)
[2023-09-12 18:51] LABS: BASO % 0.6 % (0.0-1.0); EOS # 0.3 10^3/uL (0.0-0.5); EOS % 4.3 % (0.0-3.0); HEMATOCRIT 46.1 % (42.0-52.0); HEMOGLOBIN 15.2 g/dl (13.5-17.5); LYMPH # 2.1 10^3/uL (1.5-5.0); LYMPH % 30.5 % (24.0-44.0); MEAN CORPUSCULAR HEMOGLOBIN 29.6 pg (27.0-33.0); MEAN CORPUSCULAR VOLUME 89.9 fl (80.0-96.0); MONO # 0.6 10^3/uL (0.0-0.8); MONO % 9.2 % (2.0-8.0); NEUTROPHILS # 3.8 10^3/uL (1.5-8.5); NEUTROPHILS % 54.2 % (36.0-66.0); PLATELET COUNT, AUTOMATED 271 10^3/uL (150-450); RED BLOOD COUNT 5.13 10^6/uL (4.30-6.10); WHITE BLOOD COUNT 6.9 10^3/uL (4.0-10.0)
[2023-09-12 18:52] LABS: CPK CREATINE PHOSPHOKINASE 467 U/L (46-171); RHEUMATOID FACTOR QUANT < 3.5 IU/ML (<14)
[2023-09-12 18:53] LABS: ALBUMIN 4.4 G/DL (3.2-5.2); ALKALINE PHOSPHATASE 112 U/L (46-116); ALT/SGPT 47 U/L (7.0-40); AST/SGOT 28 U/L (<34); BILIRUBIN,TOTAL 0.4 MG/DL (0.3-1.2); BLOOD UREA NITROGEN 21 MG/DL (9-23); CALCIUM LEVEL 9.6 MG/DL (8.5-10.1); CARBON DIOXIDE LEVEL 28 MMOL/L (20-31); CHLORIDE LEVEL 106 MMOL/L (98-107); CREATININE FOR GFR 0.99 MG/DL (0.70-1.30); GLOMERULAR FILTRATION RATE > 60.0 (>60); GLUCOSE, FASTING 81 MG/DL (60-100); POTASSIUM SERUM 4.7 MMOL/L (3.5-5.1); SODIUM LEVEL 139 MMOL/L (136-145); TOTAL PROTEIN 7.1 G/DL (5.7-8.2)
[2023-09-12 18:56] LABS: THYROID STIMULATING HORMONE 10.946 uIU/ML (0.55-4.78)
[2023-09-12 18:57] LABS: ERYTHROCYTE SEDIMENTATION RATE 9 mm/hr (0-15)
[2023-09-12 18:59] LABS: VITAMIN B12 LEVEL 360 PG/ML (211-911)
== END ==
LOC: M SFHCADAM 14:49
PROVIDERS: ATTEND Physician Assistant
DX: M13.0 Polyarthritis, unspecified (principal); M79.18 Myalgia, other site; M79.89 Other specified soft tissue disorders

== ENCOUNTER → 2023-11-20 | Outpatient (REF) | payer OTHER, MEDICARE | LOC: M SFHCADAM 16:50 | PROVIDERS: ATTEND Physician Assistant | DX: M79.18 Myalgia, other site (principal); E03.9 Hypothyroidism, unspecified ==

== ENCOUNTER → 2023-11-22 | Outpatient (REF) | payer OTHER, MEDICARE ==
[2023-11-22 18:16] LABS: BLOOD UREA NITROGEN 27 MG/DL (9-23); CALCIUM LEVEL 9.4 MG/DL (8.5-10.1); CARBON DIOXIDE LEVEL 27 MMOL/L (20-31); CHLORIDE LEVEL 107 MMOL/L (98-107); CPK CREATINE PHOSPHOKINASE 128 U/L (46-171); CREATININE FOR GFR 1.14 MG/DL (0.70-1.30); GLOMERULAR FILTRATION RATE > 60.0 (>60); GLUCOSE, FASTING 74 MG/DL (60-100); POTASSIUM SERUM 4.3 MMOL/L (3.5-5.1); SODIUM LEVEL 142 MMOL/L (136-145)
[2023-11-22 18:18] LABS: FREE T4 1.43 NG/DL (0.89-1.76)
== END ==
LOC: M SFHCADAM 15:19
PROVIDERS: ATTEND Physician Assistant
DX: M79.18 Myalgia, other site (principal); E03.9 Hypothyroidism, unspecified

== ENCOUNTER → 2023-12-20 | Outpatient (CLI) | payer OTHER, MEDICARE ==
[2023-12-20 18:14] LABS: CPK CREATINE PHOSPHOKINASE 171 U/L (46-171); LDH LACTATE DEHYDROGENASE 236 U/L (120-246)
[2023-12-20 18:15] LABS: ALBUMIN 4.4 G/DL (3.2-5.2); ALKALINE PHOSPHATASE 93 U/L (46-116); ALT/SGPT 35 U/L (7.0-40); AST/SGOT 13 U/L (<34); BILIRUBIN,TOTAL 0.3 MG/DL (0.3-1.2); BLOOD UREA NITROGEN 20 MG/DL (9-23); CALCIUM LEVEL 9.4 MG/DL (8.5-10.1); CARBON DIOXIDE LEVEL 28 MMOL/L (20-31); CHLORIDE LEVEL 107 MMOL/L (98-107); CREATININE FOR GFR 0.99 MG/DL (0.70-1.30); GLOMERULAR FILTRATION RATE > 60.0 (>60); GLUCOSE, FASTING 56 MG/DL (60-100); POTASSIUM SERUM 4.1 MMOL/L (3.5-5.1); SODIUM LEVEL 142 MMOL/L (136-145)
[2023-12-20 18:16] LABS: FREE T4 1.33 NG/DL (0.89-1.76); THYROID STIMULATING HORMONE 1.379 uIU/ML (0.55-4.78)
== END ==
LOC: M PLAIMG 15:19
PROVIDERS: ATTEND Physician Assistant
DX: M79.18 Myalgia, other site (principal); E03.9 Hypothyroidism, unspecified

== ENCOUNTER → 2024-02-19 | Outpatient (CLI) | payer OTHER, MEDICARE ==
[~2024-02-19] MED LIST changes: -ARIP10TA32; +ARIP10TA63
== END ==
LOC: M PLAIMG 10:26
PROVIDERS: ATTEND Internal Medicine Rheumatology
DX: R52 Pain, unspecified (principal)

== ENCOUNTER → 2024-02-19 | Outpatient (REF) | payer OTHER, MEDICARE ==
[2024-02-19 12:35] LABS: APPEARANCE, URINE CLEAR (CLEAR); BACTERIA, URINE AUTO NEGATIVE (NEGATIVE); BILIRUBIN, URINE AUTO NEGATIVE (NEGATIVE); BLOOD, URINE BLOOD NEGATIVE (NEGATIVE); COLOR, URINE YELLOW (YELLOW); GLUCOSE, URINE (UA) AUTO NEGATIVE (NEGATIVE); KETONE, URINE AUTO NEGATIVE (NEGATIVE); LEUKOCYTE ESTERASE, URINE AUTO NEGATIVE (NEGATIVE); MUCUS, URINE SMALL (NEGATIVE); NITRITE, URINE AUTO NEGATIVE (NEGATIVE); PROTEIN, URINE AUTO NEGATIVE (NEGATIVE); RBC, URINE AUTO 0 /HPF (0-3); SPECIFIC GRAVITY URINE AUTO 1.019 (1.002-1.035); SQUAMOUS EPITHELIAL CELL UR AU 0 /HPF (0-6); UROBILINOGEN, URINE AUTO 0.2 mg/dL (0.0-2.0); WBC, URINE AUTO 1 /HPF (0-3)
[2024-02-19 12:49] LABS: C REACTIVE PROTEIN QUANTITATIV < 0.40 MG/DL (<1.0); LDH LACTATE DEHYDROGENASE 203 U/L (120-246)
[2024-02-19 12:50] LABS: ALBUMIN 4.6 G/DL (3.2-5.2); ALKALINE PHOSPHATASE 93 U/L (40-129); ALT/SGPT 34 U/L (7.0-40); AST/SGOT 15 U/L (<34); BILIRUBIN,TOTAL 0.4 MG/DL (0.3-1.2); BLOOD UREA NITROGEN 18 MG/DL (9-23); CALCIUM LEVEL 10.2 MG/DL (8.5-10.1); CARBON DIOXIDE LEVEL 26 MMOL/L (20-31); CHLORIDE LEVEL 108 MMOL/L (98-107); CPK CREATINE PHOSPHOKINASE 125 U/L (46-171); CREATININE FOR GFR 0.87 MG/DL (0.70-1.30); GLOMERULAR FILTRATION RATE > 60.0 (>60); GLUCOSE, FASTING 89 MG/DL (60-100); POTASSIUM SERUM 4.1 MMOL/L (3.5-5.1); SODIUM LEVEL 141 MMOL/L (136-145); TOTAL PROTEIN 7.7 G/DL (5.7-8.2)
== END ==
LOC: M SFHCRHEU 09:33
PROVIDERS: ATTEND Internal Medicine Rheumatology
DX: R52 Pain, unspecified (principal); R74.8 Abnormal levels of other serum enzymes; K92.1 Melena; R68.2 Dry mouth, unspecified; M1A.09X1 Idiopathic chronic gout, multiple sites, with tophus (tophi)

== ENCOUNTER → 2024-03-20 | Outpatient (CLI) | payer OTHER, MEDICARE, BC ==
[~2024-03-20] MED LIST changes: +OMEP-611; -OMEP20TA2
== END ==
LOC: M ADAMS 14:32
PROVIDERS: ATTEND Physician Assistant
DX: J22 Unspecified acute lower respiratory infection (principal)

== ENCOUNTER → 2024-05-06 | Outpatient (CLI) | payer OTHER, BC | LOC: M RAD 07:29 | PROVIDERS: ATTEND Physician Assistant | DX: R05.3 Chronic cough (principal) ==

== ENCOUNTER 2024-05-23 09:18 | Day surgery (SDC) | payer OTHER, BC, MEDICARE ==
[~2024-05-23] VITALS: Ht 177.8 cm; Wt 116.6 kg
[~2024-05-23 09:18] MED LIST changes: +ADDE15CA3 PO; +ALBU8.5H INH; -ALLO300T2; +ALLO300T2 PO; +AMPH1CAP14 PO; +CLON0.5T17 PO; -DULO1CAP6; +DULO1CAP6 PO; +GABA-1172 PO; +LAMO100T68 PO; +LAMO25TA4 PO; +LEVO150T7 PO; -MELO15TA28; +MELO15TA28 PO; +MIRT-11 PO; -OMEP-611; +OMEP-611 PO; -TADA10TA; +TADA10TA PO; -VALS1TAB66; +VALS1TAB66 PO
[2024-05-23] MEDS ORDERED: DESV50TA PO (10:11)
[2024-05-23] MEDS ORDERED: LIDOCAINE 2% 100MG/5ML SDV (FOR ANES.) As Ordered ONE (10:29)
[2024-05-23] MEDS ORDERED: propofoL 200 MG/20 ML VIAL As Ordered ONE (10:29)
[2024-05-23 11:41] VITALS: TEMP 97.5
[2024-05-23 12:00] VITALS: BP 125/73; O2SAT 96
== END 2024-05-23 12:08 | disposition home or self-care (01) ==
LOC: M OPP 09:18
PROVIDERS: ATTEND Surgery
DX: K62.5 Hemorrhage of anus and rectum (principal); K59.00 Constipation, unspecified; Z79.899 Other long term (current) drug therapy; Z87.891 Personal history of nicotine dependence

== ENCOUNTER → 2024-06-02 | Outpatient (CLI) | payer OTHER, BC, MEDICARE ==
[~2024-06-02] MED LIST changes: +DESV50TA PO
== END ==
LOC: M SOG 07:57
PROVIDERS: ATTEND Physician Assistant
DX: M25.511 Pain in right shoulder (principal)

== ENCOUNTER → 2024-06-02 | Outpatient (CLI) | payer OTHER, BC, MEDICARE ==
[2024-06-02 15:02] LABS: URIC ACID 3.9 MG/DL (3.7-9.2)
[2024-06-02 15:03] LABS: BASO # 0.1 10^3/uL (0.0-0.2); EOS # 0.4 10^3/uL (0.0-0.5); EOS % 6.9 % (0.0-3.0); HEMATOCRIT 44.9 % (42.0-52.0); HEMOGLOBIN 15.1 g/dl (13.5-17.5); LYMPH # 1.6 10^3/uL (1.5-5.0); LYMPH % 28.2 % (24.0-44.0); MEAN CORPUSCULAR HEMOGLOBIN 29.8 pg (27.0-33.0); MEAN CORPUSCULAR HGB CONC 33.6 g/dl (32.0-36.5); MEAN CORPUSCULAR VOLUME 88.7 fl (80.0-96.0); MONO # 0.6 10^3/uL (0.0-0.8); MONO % 10.2 % (2.0-8.0); NEUTROPHILS # 3.1 10^3/uL (1.5-8.5); NEUTROPHILS % 53.5 % (36.0-66.0); PLATELET COUNT, AUTOMATED 310 10^3/uL (150-450); RED BLOOD COUNT 5.06 10^6/uL (4.30-6.10); WHITE BLOOD COUNT 5.8 10^3/uL (4.0-10.0)
[2024-06-02 15:04] LABS: ALBUMIN 4.5 G/DL (3.2-5.2); ALKALINE PHOSPHATASE 91 U/L (40-129); ALT/SGPT 30 U/L (7.0-40); AST/SGOT 18 U/L (<34); BILIRUBIN,TOTAL 0.4 MG/DL (0.3-1.2); BLOOD UREA NITROGEN 15 MG/DL (9-23); CALCIUM LEVEL 9.9 MG/DL (8.5-10.1); CARBON DIOXIDE LEVEL 29 MMOL/L (20-31); CHLORIDE LEVEL 108 MMOL/L (98-107); CHOLESTEROL LEVEL 210 MG/DL (<200); CHOLESTEROL RISK RATIO 4.59 (<5); CREATININE FOR GFR 0.86 MG/DL (0.70-1.30); GLOMERULAR FILTRATION RATE > 60.0 (>60); GLUCOSE, FASTING 85 MG/DL (60-100); HDL CHOLESTEROL 45.7 MG/DL (>40); LDL CHOLESTEROL 133.9 MG/DL (<100); NON-HDL-C 164.3 MG/DL; POTASSIUM SERUM 4.7 MMOL/L (3.5-5.1); SODIUM LEVEL 146 MMOL/L (136-145); TOTAL PROTEIN 7.4 G/DL (5.7-8.2); TRIGLYCERIDES LEVEL 152 MG/DL (<150)
[2024-06-02 15:08] LABS: FREE T4 1.45 NG/DL (0.89-1.76); THYROID STIMULATING HORMONE 0.172 uIU/ML (0.55-4.78); TOTAL 25(OH) VITAMIN D 24.3 NG/ML (20.0-100.0)
[2024-06-02 15:35] LABS: HEMOGLOBIN A1c 5.2 % (4.0-6.0)
== END ==
LOC: M PLALAB 11:50
PROVIDERS: ATTEND Physician Assistant
DX: K62.5 Hemorrhage of anus and rectum (principal)

== ENCOUNTER 2024-06-06 09:58 | Emergency (ER) | payer OTHER, BC, MEDICARE ==
[~2024-06-06] VITALS: Ht 177.8 cm; Wt 118.0 kg
[2024-06-06 10:03] VITALS: TEMP 96.4
[2024-06-06] MEDS: KETOROLAC 60MG 2ML VIAL IM ONE (13:51)
[2024-06-06 14:06] VITALS: BP 175/65; O2SAT 96
== END 2024-06-06 14:09 | disposition home or self-care (01) ==
LOC: M ED 09:58
DX: R07.89 Other chest pain (principal); S29.011A Strain of muscle and tendon of front wall of thorax, initial encounter; Y92.9 Unspecified place or not applicable; Y93.9 Activity, unspecified; Y99.9 Unspecified external cause status; I10 Essential (primary) hypertension; E78.5 Hyperlipidemia, unspecified; F10.10 Alcohol abuse, uncomplicated; Z79.51 Long term (current) use of inhaled steroids; Z79.899 Other long term (current) drug therapy
CPT/HCPCS: 71046; 96372; 99283; J1885

== ENCOUNTER → 2024-06-25 | Outpatient (CLI) | payer OTHER, BC, MEDICARE | LOC: M ADAMS 14:23 | PROVIDERS: ATTEND Physician Assistant | DX: S20.212A Contusion of left front wall of thorax, initial encounter (principal); W18.30XA Fall on same level, unspecified, initial encounter; Y92.009 Unspecified place in unspecified non-institutional (private) residence as the place of occurrence of the external cause ==

== ENCOUNTER → 2024-06-25 | Outpatient (REF) | payer OTHER, BC, MEDICARE ==
[2024-06-25 18:43] LABS: FREE T4 1.43 NG/DL (0.89-1.76)
[2024-06-25 18:44] LABS: THYROID STIMULATING HORMONE 0.333 uIU/ML (0.55-4.78)
== END ==
LOC: M SFHCADAM 14:04
PROVIDERS: ATTEND Physician Assistant
DX: M79.10 Myalgia, unspecified site (principal); E03.9 Hypothyroidism, unspecified

== ENCOUNTER → 2024-07-08 | Outpatient (CLI) | payer OTHER, BC, MEDICARE | LOC: M RAD 15:14 | PROVIDERS: ATTEND Physician Assistant | DX: E04.1 Nontoxic single thyroid nodule (principal) ==

== ENCOUNTER → 2024-07-30 | Outpatient (CLI) | payer OTHER, BC, MEDICARE | LOC: M PLAIMG 13:46 | PROVIDERS: ATTEND Neuromusculoskeletal Medicine, Sports Medicine | DX: M75.01 Adhesive capsulitis of right shoulder (principal) ==

== ENCOUNTER → 2024-10-14 | Outpatient (CLI) | payer OTHER, BC ==
[~2024-10-14] MED LIST changes: +BACT800T5 PO; +CEPH500C PO; +LAMO-18 PO; -LAMO25TA4 PO; +LOTR1CRE12 TOP; +tylenol #3 PO
== END ==
LOC: M PLARAD 15:36
PROVIDERS: ATTEND Pain Medicine Interventional Pain Medicine
DX: M54.16 Radiculopathy, lumbar region (principal); M54.12 Radiculopathy, cervical region

== ENCOUNTER → 2025-01-12 | Outpatient (CLI) | payer OTHER, BC ==
[2025-01-12 18:41] LABS: PLATELET COUNT, AUTOMATED 353 10^3/uL (150-450)
[2025-01-12 18:45] LABS: FREE T4 1.52 NG/DL (0.89-1.76)
[2025-01-12 18:53] LABS: ALT/SGPT 34.0 U/L (7.0-40); AST/SGOT 19.0 U/L (<34); CALCIUM LEVEL 9.6 MG/DL (8.5-10.1); CARBON DIOXIDE LEVEL 24.0 MMOL/L (20-31); CHLORIDE LEVEL 109.0 MMOL/L (98-107); CHOLESTEROL LEVEL 203.0 MG/DL (<200); CHOLESTEROL RISK RATIO 4.3 (<5); CREATININE FOR GFR 1.04 MG/DL (0.70-1.30); GLOMERULAR FILTRATION RATE 88.0 (>60); LDL CHOLESTEROL 129.6 MG/DL (<100); NON-HDL-C 155.8 MG/DL; POTASSIUM SERUM 4.5 MMOL/L (3.5-5.1); SODIUM LEVEL 146.0 MMOL/L (136-145); TRIGLYCERIDES LEVEL 131.0 MG/DL (<150)
[2025-01-12 18:57] LABS: ESTIMATED AVERAGE GLUCOSE 103.0 MG/DL (60-110)
== END ==
LOC: M PLALAB 15:05
PROVIDERS: ATTEND Physician Assistant
DX: E03.9 Hypothyroidism, unspecified (principal); E78.2 Mixed hyperlipidemia; I10 Essential (primary) hypertension; M1A.09X1 Idiopathic chronic gout, multiple sites, with tophus (tophi)

== ENCOUNTER → 2025-03-09 | Outpatient (CLI) | payer OTHER, BC ==
[2025-03-09 17:42] LABS: BASO # 0.1 10^3/uL (0.0-0.2); BASO % 0.6 % (0.0-1.0); EOS # 0.0 10^3/uL (0.0-0.5); EOS % 0.0 % (0.0-3.0); LYMPH # 2.2 10^3/uL (1.5-5.0); LYMPH % 27.2 % (24.0-44.0); MONO # 0.8 10^3/uL (0.0-0.8); MONO % 10.0 % (2.0-8.0); NEUTROPHILS # 4.9 10^3/uL (1.5-8.5); NEUTROPHILS % 61.8 % (36.0-66.0); PLATELET COUNT, AUTOMATED 317 10^3/uL (150-450)
[2025-03-09 17:45] LABS: C REACTIVE PROTEIN QUANTITATIV < 0.50 MG/DL (<1.0)
[2025-03-09 17:47] LABS: ALT/SGPT 40 U/L (7.0-40); AST/SGOT 30 U/L (<34); CALCIUM LEVEL 9.5 MG/DL (8.5-10.1); CARBON DIOXIDE LEVEL 30 MMOL/L (20-31); CHLORIDE LEVEL 102 MMOL/L (98-107); CREATININE FOR GFR 1.03 MG/DL (0.70-1.30); GLOMERULAR FILTRATION RATE 89.1 (>60); POTASSIUM SERUM 4.9 MMOL/L (3.5-5.1); SODIUM LEVEL 143 MMOL/L (136-145)
== END ==
LOC: M PLALAB 15:14
PROVIDERS: ATTEND Internal Medicine Rheumatology
DX: R74.8 Abnormal levels of other serum enzymes (principal); R52 Pain, unspecified; R68.2 Dry mouth, unspecified; M1A.09X1 Idiopathic chronic gout, multiple sites, with tophus (tophi)